=== PATIENT | female | born 1935 | race Caucasian/White ===

== ENCOUNTER → 2018-11-30 | Outpatient (REF) | payer MEDICARE, OTHER, BC ==
[~2018-11-30] MED LIST: ANTI25TA PO; ASPI81TA83 OR; AVEL1TAB2 PO; CETI10TA OR; COLA50CA3 PO; FISH500C OR; LASI20TA PO; LEVOXYL PO; LEVOXYL25 MCG PO; LISI2.5T OR; LIVALO PO; MUCI600T34 PO; MULTIVIT PO; TYLE325T5 PO; VERAMYST; VIT D 2000 PO; VITA200C OR; VITA500T OR; ZEST30TA2 PO
== END ==
LOC: M SFHCPLAZ 13:19
PROVIDERS: ATTEND Nurse Practitioner Adult Health
DX: R19.4 Change in bowel habit (principal)

== ENCOUNTER → 2019-04-12 | Outpatient (REF) | payer MEDICARE, OTHER, BC ==
[2019-04-12 14:49] LABS: ALBUMIN 3.6 GM/DL (3.2-5.2); BILIRUBIN,TOTAL 0.4 MG/DL (0.2-1.0); CALCIUM LEVEL 8.9 MG/DL (8.8-10.2); CHOLESTEROL RISK RATIO 2.358 (<5); CREATININE FOR GFR 1.18 MG/DL (0.55-1.30); GLOMERULAR FILTRATION RATE 46.2 (>32); POTASSIUM SERUM 3.6 MEQ/L (3.5-5.1); THYROID STIMULATING HORMONE 2.17 uIU/ML (0.358-3.740); TOTAL 25(OH) VITAMIN D 45.2 NG/ML (30.0-100.0); TOTAL PROTEIN 7.4 GM/DL (6.4-8.2)
== END ==
LOC: M SFHCPLAZ 13:29
PROVIDERS: ATTEND Nurse Practitioner Adult Health
DX: E03.9 Hypothyroidism, unspecified (principal); E55.9 Vitamin D deficiency, unspecified; I44.2 Atrioventricular block, complete; E78.00 Pure hypercholesterolemia, unspecified

== ENCOUNTER 2019-06-24 10:13 | Emergency (ER) | payer MEDICARE, BC, OTHER ==
[~2019-06-24] VITALS: Ht 149.9 cm; Wt 50.9 kg
[2019-06-24 10:16] VITALS: BP 118/64
[2019-06-24] MEDS ORDERED: NS 500 ML IV ONE (11:45)
[2019-06-24 11:47] LABS: BASO # 0.1 10^3/uL (0.0-0.2); BASO % 0.7 % (0.0-1.0); EOS % 0.6 % (0.0-3.0); HEMATOCRIT 42.2 % (36.0-47.0); HEMOGLOBIN 13.8 g/dl (12.0-15.5); LYMPH # 1.8 10^3/uL (1.5-5.0); LYMPH % 25.1 % (24.0-44.0); MEAN CORPUSCULAR HEMOGLOBIN 30.1 pg (27.0-33.0); MEAN CORPUSCULAR HGB CONC 32.7 g/dl (32.0-36.5); MEAN CORPUSCULAR VOLUME 92.1 fl (80.0-96.0); MONO % 13.1 % (0.0-5.0); NEUTROPHILS # 4.3 10^3/uL (1.5-8.5); NEUTROPHILS % 59.8 % (36.0-66.0); PLATELET COUNT, AUTOMATED 219 10^3/uL (150-450); RED BLOOD COUNT 4.58 10^6/uL (4.00-5.40); WHITE BLOOD COUNT 7.3 10^3/uL (4.0-10.0)
[2019-06-24 12:10] LABS: ALBUMIN 3.6 GM/DL (3.2-5.2); BILIRUBIN,DIRECT 0.1 MG/DL (0.0-0.2); BILIRUBIN,TOTAL 0.3 MG/DL (0.2-1.0); CALCIUM LEVEL 9.4 MG/DL (8.8-10.2); CREATININE FOR GFR 1.2 MG/DL (0.55-1.30); GLOMERULAR FILTRATION RATE 45.3 (>32); POTASSIUM SERUM 3.3 MEQ/L (3.5-5.1); TOTAL PROTEIN 7.8 GM/DL (6.4-8.2)
[2019-06-24] MEDS ORDERED: ZYRTTAB8 PO (12:16)
[2019-06-24] MEDS ORDERED: CARV6.25 PO (12:16)
[2019-06-24] MEDS ORDERED: VITA50005 PO (12:16)
[2019-06-24] MEDS ORDERED: ATOR1TAB19 PO (12:16)
[2019-06-24] MEDS ORDERED: VITA-158 PO (12:16)
[2019-06-24] MEDS ORDERED: ASPI81TA85 PO (12:16)
[2019-06-24] MEDS ORDERED: CHLO125TA PO (12:16)
[2019-06-24] MEDS ORDERED: LEVO25TA5 PO (12:16)
[2019-06-24] MEDS ORDERED: MULTCAP PO (12:17)
[2019-06-24] MEDS: GASTROGRAFIN SOLUTION 30ML PO SCH ×2 (14:05→14:36)
[2019-06-24] MEDS ORDERED: ISOVUE-370 76% 100ML VIAL (Q9967) As Ordered ONE (14:48)
--- NOTE | 2019-06-24 15:23 | REP ---
Clinical: Diarrhea and weight loss. Technique: Axial contrast enhanced images from the lung bases to the pubic symphysis using oral (per protocol) and 100 ml Isovue 370 intravenous contrast material with coronal and sagittal re-formations. Findings: Lung bases demonstrate chronic changes. Liver, spleen, pancreas, gallbladder, bilateral adrenal glands and kidneys are normal. The enteric system is without obstruction or acute inflammatory process. Significant colonic and sigmoid diverticulosis noted without acute diverticulitis. Pelvis demonstrates normal bladder and age-appropriate uterus/adnexa. Abdominal aorta demonstrates atherosclerotic changes without aneurysm or dissection. Musculoskeletal structures demonstrate degenerative changes without focal abnormality. Impression: 1. Diverticulosis without acute diverticulitis. 2. No further acute abdominopelvic pathology appreciated. Electronically Signed by Brad Alston MD 06/24/2019 03:15 P
[2019-07-01] MEDS ORDERED: D 10CAP PO (10:33)
[2019-07-01] MEDS ORDERED: VITA100066 PO (10:49)
== END 2019-06-24 16:01 | disposition home or self-care (01) ==
LOC: M ED 10:13
DX: K57.90 Diverticulosis of intestine, part unspecified, without perforation or abscess without bleeding (principal); I11.0 Hypertensive heart disease with heart failure; I50.9 Heart failure, unspecified; J45.909 Unspecified asthma, uncomplicated; E03.9 Hypothyroidism, unspecified; E78.5 Hyperlipidemia, unspecified; M81.0 Age-related osteoporosis without current pathological fracture; Z95.0 Presence of cardiac pacemaker; Z79.899 Other long term (current) drug therapy; Z79.82 Long term (current) use of aspirin; Z79.890 Hormone replacement therapy
CPT/HCPCS: 74177; 80048; 80076; 81001; 83690; 85025; 96360; 99283; Q9963; Q9967

== ENCOUNTER 2019-06-26 08:18 | Emergency (ER) | payer MEDICARE, BC, OTHER ==
[~2019-06-26] VITALS: Ht 149.9 cm; Wt 50.1 kg
[~2019-06-26 08:18] MED LIST changes: +ASPI81TA85 PO; +ATOR1TAB19 PO; +CARV6.25 PO; +CHLO125TA PO; +LEVO25TA5 PO; +MULTCAP PO; +VITA-158 PO; +VITA50005 PO; +ZYRTTAB8 PO
[2019-06-26 09:07] LABS: HEMATOCRIT 39.5 % (36.0-47.0); HEMOGLOBIN 13.2 g/dl (12.0-15.5); MEAN CORPUSCULAR HEMOGLOBIN 30.1 pg (27.0-33.0); MEAN CORPUSCULAR HGB CONC 33.4 g/dl (32.0-36.5); PLATELET COUNT, AUTOMATED 225 10^3/uL (150-450); RED BLOOD COUNT 4.39 10^6/uL (4.00-5.40); WHITE BLOOD COUNT 7.5 10^3/uL (4.0-10.0)
[2019-06-26 09:34] LABS: CALCIUM LEVEL 8.6 MG/DL (8.8-10.2); CREATININE FOR GFR 1.05 MG/DL (0.55-1.30); GLOMERULAR FILTRATION RATE 52.9 (>32); POTASSIUM SERUM 3.1 MEQ/L (3.5-5.1)
[2019-06-26 10:06] LABS: ALBUMIN 3.5 GM/DL (3.2-5.2); BILIRUBIN,DIRECT 0.1 MG/DL (0.0-0.2); BILIRUBIN,TOTAL 0.4 MG/DL (0.2-1.0); TOTAL PROTEIN 7.5 GM/DL (6.4-8.2)
[2019-06-26] MEDS ORDERED: LOPERAMIDE 2 MG CAPLET PO ONE (10:30)
[2019-06-26] MEDS ORDERED: LOPE-39 PO (10:44)
[2019-06-26 10:53] VITALS: BP 142/63
[2019-07-01] MEDS ORDERED: D 10CAP PO (10:33)
[2019-07-01] MEDS ORDERED: VITA100066 PO (10:49)
== END 2019-06-26 10:55 | disposition home or self-care (01) ==
LOC: M ED 08:18
DX: R19.7 Diarrhea, unspecified (principal); K57.90 Diverticulosis of intestine, part unspecified, without perforation or abscess without bleeding; E78.00 Pure hypercholesterolemia, unspecified; I10 Essential (primary) hypertension; E03.9 Hypothyroidism, unspecified; Z87.891 Personal history of nicotine dependence; Z95.0 Presence of cardiac pacemaker; Z79.82 Long term (current) use of aspirin; Z79.899 Other long term (current) drug therapy

== ENCOUNTER 2019-07-05 06:54 | Day surgery (SDC) | payer MEDICARE, BC, OTHER ==
[~2019-07-05] VITALS: Ht 149.9 cm; Wt 49.9 kg
[~2019-07-05 06:54] MED LIST changes: +D 10CAP PO; +LOPE-39 PO; +NS 1,000 ML IV ONE; +VITA100066 PO
[2019-07-05] MEDS ORDERED: propofoL 200 MG/20 ML VIAL As Ordered ONE (07:48)
[2019-07-05] MEDS ORDERED: LIDOCAINE 2% INJ 100 MG/5 ML SDV (FOR ANES.) As Ordered ONE (07:48)
--- NOTE | 2019-07-05 09:08 | ROOR ---
Patient Name: Esperanza Mccray Procedure Date: 07/05/2019 8:13 AM Date of : 1935 Age: 84 Room: [facility] Gender: Female Note Status: Finalized Procedure: Colonoscopy Indications: Chronic diarrhea Providers: Andrea Baca MD Referring MD: Bobbi ALEX NP Requesting Provider: Medicines: Monitored Anesthesia Care Complications: No immediate complications. Procedure: Pre-Anesthesia Assessment: - Prior to the procedure, a History and Physical was performed, and patient medications and allergies were reviewed. The patient is competent. The risks and benefits of the procedure and the sedation options and risks were discussed with the patient. All questions were answered and informed consent was obtained. Patient identification and proposed procedure were verified by the physician, the nurse and the anesthesiologist in the procedure room. Mental Status Examination: alert and oriented. Airway Examination: normal oropharyngeal airway and neck mobility. Respiratory Examination: clear to auscultation. CV Examination: normal. Prophylactic Antibiotics: The patient does not require prophylactic antibiotics. Prior Anticoagulants: The patient has taken no previous anticoagulant or antiplatelet agents. ASA Grade Assessment: III - A patient with severe systemic disease. After reviewing the risks and benefits, the patient was deemed in satisfactory condition to undergo the procedure. The anesthesia plan was to use monitored anesthesia care (MAC). Immediately prior to administration of medications, the patient was re-assessed for adequacy to receive sedatives. The heart rate, respiratory rate, oxygen saturations, blood pressure, adequacy of pulmonary ventilation, and response to care were monitored throughout the procedure. The physical status of the patient was re-assessed after the procedure. The Colonoscope was introduced through the anus and advanced to the cecum, identified by appendiceal orifice and ileocecal valve. The colonoscopy was performed without difficulty. The patient tolerated the procedure well. The quality of the bowel preparation was good. The ileocecal valve, appendiceal orifice, and rectum were photographed. Scope insertion time was 4 minutes. Scope withdrawal time was 7 minutes. The total duration of the procedure was 12 minutes. Findings: The perianal and digital rectal examinations were normal. A diffuse pseudomembrane was found in the sigmoid colon and in the descending colon. Fluid aspiration was performed through the scope suction channel. The amount of fluid collected was 40 mL. The fluid was yellow. Sample(s) were sent for Clostridium difficile and stool panel. Verification of patient identification for the specimen was done by the physician and nurse using the patient's name, date and medical record number. Estimated blood loss was minimal. This was biopsied with a cold forceps for histology. Multiple small and large-mouthed diverticula were found from sigmoid to ascending colon. There was no evidence of diverticular bleeding. Non-bleeding external and internal hemorrhoids were found during endoscopy. The hemorrhoids were small. Retroflexion in the rectum was not performed due to due to severe inflammation. Impression: - Pseudomembranous enterocolitis. - Severe diverticulosis from sigmoid to ascending colon. There was no evidence of diverticular bleeding. - Non-bleeding external and internal hemorrhoids. Recommendation: - Patient has a contact number available for emergencies. The signs and symptoms of potential delayed complications were discussed with the patient. Return to normal activities tomorrow. Written discharge instructions were provided to the patient. - High fiber diet. - Continue present medications. - Await pathology results. - Follow the microbiology results. - Repeat colonoscopy is not recommended due to current age (66 years or older) for screening purposes. - Telephone GI clinic for pathology results in 1 week. - Return to primary care physician. Andrea Baca MD Andrea Baca MD 07/05/2019 9:07:55 AM Electronically signed by Andrea Baca MD Number of Addenda: 0 Note Initiated On: 07/05/2019 8:13 AM Estimated Blood Loss: Estimated blood loss was minimal.
[2019-07-05 09:20] VITALS: BP 194/89
== END 2019-07-05 09:24 | disposition home or self-care (01) ==
LOC: M OPP 06:54
PROVIDERS: ATTEND Internal Medicine Gastroenterology
DX: A04.72 Enterocolitis due to Clostridium difficile, not specified as recurrent (principal); K64.8 Other hemorrhoids; K52.9 Noninfective gastroenteritis and colitis, unspecified; K57.30 Diverticulosis of large intestine without perforation or abscess without bleeding; K51.50 Left sided colitis without complications; I34.9 Nonrheumatic mitral valve disorder, unspecified; Z79.899 Other long term (current) drug therapy; Z87.891 Personal history of nicotine dependence; Z95.5 Presence of coronary angioplasty implant and graft; Z85.3 Personal history of malignant neoplasm of breast

== ENCOUNTER → 2021-01-07 | Outpatient (CLI) | payer MEDICARE, OTHER, BC ==
[~2021-01-07] MED LIST changes: -ASPI81TA85 PO; +ASPI81TA86 PO; +ERGO500029 PO; -NS 1,000 ML IV ONE; -VITA50005 PO
[2021-01-07 13:22] LABS: ALBUMIN 3.9 GM/DL (3.2-5.2); BILIRUBIN,TOTAL 0.7 MG/DL (0.2-1.0); CALCIUM LEVEL 9.5 MG/DL (8.8-10.2); CHOLESTEROL RISK RATIO 2.661 (<5); CREATININE FOR GFR 1.06 MG/DL (0.55-1.30); GLOMERULAR FILTRATION RATE 52.2 (>32); POTASSIUM SERUM 3.4 MEQ/L (3.5-5.1); TOTAL PROTEIN 7.7 GM/DL (6.4-8.2)
== END ==
LOC: M WUC 09:01
PROVIDERS: ATTEND Physician Assistant
DX: I11.9 Hypertensive heart disease without heart failure (principal); E78.00 Pure hypercholesterolemia, unspecified

== ENCOUNTER → 2021-07-24 | Outpatient (CLI) | payer MEDICARE, BC, OTHER ==
[2021-07-24 14:34] LABS: CALCIUM LEVEL 9.5 MG/DL (8.8-10.2); CREATININE FOR GFR 1.01 MG/DL (0.55-1.30); GLOMERULAR FILTRATION RATE 55.1 (>32); POTASSIUM SERUM 3.6 MEQ/L (3.5-5.1)
== END ==
LOC: M PLALAB 10:59
PROVIDERS: ATTEND Physician Assistant
DX: I11.9 Hypertensive heart disease without heart failure (principal)

== ENCOUNTER → 2021-10-29 | Outpatient (CLI) | payer MEDICARE, BC, OTHER ==
[2021-10-29 11:15] LABS: ALBUMIN 3.7 GM/DL (3.2-5.2); BILIRUBIN,TOTAL 0.6 MG/DL (0.2-1.0); CHOLESTEROL RISK RATIO 2.75 (<5); CREATININE FOR GFR 1.02 MG/DL (0.55-1.30); GLOMERULAR FILTRATION RATE 54.4 (>32); POTASSIUM SERUM 3.7 MEQ/L (3.5-5.1); THYROID STIMULATING HORMONE 1.9 uIU/ML (0.358-3.740); TOTAL 25(OH) VITAMIN D 32.7 NG/ML (30.0-100.0); TOTAL PROTEIN 7.5 GM/DL (6.4-8.2)
== END ==
LOC: M PLALAB 09:11
PROVIDERS: ATTEND Nurse Practitioner Adult Health
DX: E03.9 Hypothyroidism, unspecified (principal); D55.9 Anemia due to enzyme disorder, unspecified; E78.00 Pure hypercholesterolemia, unspecified; I11.9 Hypertensive heart disease without heart failure; Z79.899 Other long term (current) drug therapy

== ENCOUNTER → 2022-06-24 | Outpatient (CLI) | payer MEDICARE, BC, OTHER ==
[2022-06-24 14:18] LABS: TOTAL 25(OH) VITAMIN D 33.8 NG/ML (20.0-100.0)
[2022-06-24 14:19] LABS: ALBUMIN 3.8 G/DL (3.2-5.2); BILIRUBIN,TOTAL 0.6 MG/DL (0.3-1.2); CALCIUM LEVEL 9.9 MG/DL (8.3-10.6); CHOLESTEROL RISK RATIO 2.65 (<5); CREATININE FOR GFR 0.99 MG/DL (0.55-1.30); GLOMERULAR FILTRATION RATE 56.2 (>32); HDL CHOLESTEROL 52.7 MG/DL (>40); LDL CHOLESTEROL 69.5 MG/DL (<100); POTASSIUM SERUM 4.2 MMOL/L (3.5-5.1); TOTAL PROTEIN 7.1 G/DL (5.7-8.2)
[2022-06-24 14:21] LABS: THYROID STIMULATING HORMONE 1.291 uIU/ML (0.55-4.78)
== END ==
LOC: M PLALAB 09:49
PROVIDERS: ATTEND Nurse Practitioner Adult Health
DX: E55.9 Vitamin D deficiency, unspecified (principal); E03.9 Hypothyroidism, unspecified; E78.00 Pure hypercholesterolemia, unspecified; I11.9 Hypertensive heart disease without heart failure; Z79.899 Other long term (current) drug therapy

== ENCOUNTER → 2022-06-24 | Outpatient (CLI) | payer MEDICARE, BC, OTHER ==
[2022-06-24 14:16] LABS: ALBUMIN 3.8 G/DL (3.2-5.2); BILIRUBIN,TOTAL 0.6 MG/DL (0.3-1.2); CALCIUM LEVEL 9.9 MG/DL (8.3-10.6); CHOLESTEROL RISK RATIO 2.66 (<5); CREATININE FOR GFR 0.99 MG/DL (0.55-1.30); GLOMERULAR FILTRATION RATE 56.2 (>32); HDL CHOLESTEROL 52.5 MG/DL (>40); LDL CHOLESTEROL 69.5 MG/DL (<100); POTASSIUM SERUM 4.5 MMOL/L (3.5-5.1); TOTAL PROTEIN 7.1 G/DL (5.7-8.2)
== END ==
LOC: M PLALAB 09:46
PROVIDERS: ATTEND Physician Assistant
DX: E78.00 Pure hypercholesterolemia, unspecified (principal); I11.9 Hypertensive heart disease without heart failure